=== PATIENT | male | born 1965 | race Caucasian/White ===

== ENCOUNTER 2017-11-12 08:57 | Emergency (ER) | payer OTHER ==
[~2017-11-12] VITALS: Ht 182.9 cm; Wt 163.3 kg
[2017-11-12] MEDS ORDERED: LOSA50TA36 (09:47)
[2017-11-12 09:54] LABS: BASOPHILS # (AUTO) 0.1 10^3/uL (0.0-0.1); BASOPHILS % (AUTO) 1 % (0-10); EOSINOPHILS # (AUTO) 0.2 10^3/uL (0.0-0.3); EOSINOPHILS % (AUTO) 2 % (0-10); HEMATOCRIT 43 % (40-54); HEMOGLOBIN 14.6 G/DL (13.3-17.7); LYMPHOCYTES # (AUTO) 2.2 X 10^3 (1.0-4.0); LYMPHOCYTES % (AUTO) 27 % (12-44); MEAN CORPUSCULAR HEMOGLOBIN 28 PG (25-34); MEAN CORPUSCULAR HGB CONC 34 G/DL (32-36); MEAN CORPUSCULAR VOLUME 83 FL (80-99); MEAN PLATELET VOLUME 10.8 FL (7.4-10.4); MONOCYTES # (AUTO) 0.6 X 10^3 (0.0-1.0); MONOCYTES % (AUTO) 8 % (0-12); NEUTROPHILS # (AUTO) 5.1 X 10^3 (1.8-7.8); NEUTROPHILS % (AUTO) 63 % (42-75); PLATELET COUNT 254 10^3/uL (130-400); RED BLOOD COUNT 5.22 10^6/uL (4.35-5.85); RED CELL DISTRIBUTION WIDTH 14.3 % (10.0-14.5); WHITE BLOOD COUNT 8.1 10^3/uL (4.3-11.0)
[2017-11-12] MEDS ORDERED: ONDANSETRON 4 MG/2 ML (SDV) Z0FRAN IVP ONE (10:00)
[2017-11-12] MEDS ORDERED: HYDROmorphone (DILAUDID) 2 MG/ML VIAL IVP ONE (10:00)
[2017-11-12] MEDS ORDERED: NS IV 1000 ML 1,000 ML IV SCH ×2 (10:00→11:15)
[2017-11-12 10:08] LABS: ALANINE AMINOTRANSFERASE 27 U/L (0-55); ALBUMIN 3.9 GM/DL (3.2-4.5); ALKALINE PHOSPHATASE 69 U/L (40-136); BILIRUBIN,TOTAL 0.7 MG/DL (0.1-1.0); BUN/CREATININE RATIO 13; CALCIUM 9.3 MG/DL (8.5-10.1); CARBON DIOXIDE 26 MMOL/L (21-32); CHLORIDE 107 MMOL/L (98-107); CREATININE SERUM 1.11 MG/DL (0.60-1.30); GFR ESTIMATED > 60; GLUCOSE 120 MG/DL (70-105); POTASSIUM 4.2 MMOL/L (3.6-5.0); SODIUM 142 MMOL/L (135-145); TOTAL PROTEIN 6.9 GM/DL (6.4-8.2)
--- NOTE | 2017-11-12 10:17 | ED GU-Male ---
General Chief Complaint: Abdominal/GI Problems Stated Complaint: POSS KIDNEY STONE Nursing Triage Note: ONSET OF L FLANK PAIN WITH RADIATION TO L GROIN Source: patient Exam Limitations: no limitations History of Present Illness Time seen by provider: 09:50 Initial Comments The patient is a 52-year-old white male who presents with a chief complaint of left sided flank pain with radiation towards the testicles. This began this morning. He has not noted any hematuria. He has a previous history of a kidney stone. Timing/Duration: this morning Severity/Quality: moderate Location: left flank Radiation: suprapubic, scrotal Activities at Onset: none Allergies and Home Medications Allergies Coded Allergies: levofloxacin (Verified Allergy, Unknown, 11/12/17) Home Medications Losartan Potassium 50 Mg Tablet, (Reported) Constitutional: see HPI Respiratory: no symptoms reported Gastrointestinal: no symptoms reported Genitourinary: flank pain (left-sided) Musculoskeletal: no symptoms reported Skin: no symptoms reported Past Thdwyht-Yjydgy-Olkgxn Hx Patient Social History Alcohol Use: Denies Use Recreational Drug Use: No Smoking Status: Never a Smoker Recent Foreign Travel: No Contact w/Someone Who Travel: No Recent Infectious Disease Expo: No Physical Exam Vital Signs Vital Sign - Last 12Hours 11/12/17 09:25 Temp 97.5 Pulse 58 Resp 18 B/P (MAP) 122/82 (95) Pulse Ox 95 Capillary Refill : Less Than 3 Seconds General Appearance: moderate distress HEENT: normal ENT inspection Neck: full range of motion Cardiovascular: normal peripheral pulses, regular rate, rhythm, no edema, no gallop, no JVD, no murmur Respiratory: chest non-tender, lungs clear, normal breath sounds, no respiratory distress, no accessory muscle use Back: CVA tenderness (L) Extremities: normal range of motion Progress/Results/Core Measures Suspected Sepsis Recent Fever Within 48 Hours: No Infection Criteria Present: None New/Unexplained Altered Menta: No Sepsis Screen: No Definite Risk Sepsis Diagnosis: SIRS Temperature:97.5 Pulse: 58 Respiratory Rate: 18 Laboratory Tests 11/12/17 09:40: White Blood Count 8.1 Blood Pressure 122 /82 Mean: 95 Laboratory Tests 11/12/17 09:40: Creatinine 1.11, Platelet Count 254, Total Bilirubin 0.7 Results/Orders Lab Results Laboratory Tests Test 11/12/17 09:40 Range/Units White Blood Count 8.1 4.3-11.0 10^3/uL Red Blood Count 5.22 4.35-5.85 10^6/uL Hemoglobin 14.6 13.3-17.7 G/DL Hematocrit 43 40-54 % Mean Corpuscular Volume 83 80-99 FL Mean Corpuscular Hemoglobin 28 25-34 PG Mean Corpuscular Hemoglobin Concent 34 32-36 G/DL Red Cell Distribution Width 14.3 10.0-14.5 % Platelet Count 254 130-400 10^3/uL Mean Platelet Volume 10.8 H 7.4-10.4 FL Neutrophils (%) (Auto) 63 42-75 % Lymphocytes (%) (Auto) 27 12-44 % Monocytes (%) (Auto) 8 0-12 % Eosinophils (%) (Auto) 2 0-10 % Basophils (%) (Auto) 1 0-10 % Neutrophils # (Auto) 5.1 1.8-7.8 X 10^3 Lymphocytes # (Auto) 2.2 1.0-4.0 X 10^3 Monocytes # (Auto) 0.6 0.0-1.0 X 10^3 Eosinophils # (Auto) 0.2 0.0-0.3 10^3/uL Basophils # (Auto) 0.1 0.0-0.1 10^3/uL Sodium Level 142 135-145 MMOL/L Potassium Level 4.2 3.6-5.0 MMOL/L Chloride Level 107 98-107 MMOL/L Carbon Dioxide Level 26 21-32 MMOL/L Anion Gap 9 5-14 MMOL/L Blood Urea Nitrogen 14 7-18 MG/DL Creatinine 1.11 0.60-1.30 MG/DL Estimat Glomerular Filtration Rate > 60 BUN/Creatinine Ratio 13 Glucose Level 120 H 70-105 MG/DL Calcium Level 9.3 8.5-10.1 MG/DL Total Bilirubin 0.7 0.1-1.0 MG/DL Aspartate Amino Transf (AST/SGOT) 24 5-34 U/L Alanine Aminotransferase (ALT/SGPT) 27 0-55 U/L Alkaline Phosphatase 69 40-136 U/L Total Protein 6.9 6.4-8.2 GM/DL Albumin 3.9 3.2-4.5 GM/DL My Orders Orders - ANITA WALTERS MD Cbc With Automated Diff (11/12/17 09:46) Comprehensive Metabolic Panel (11/12/17 09:46) Ua Culture If Indicated (11/12/17 09:46) Ns Iv 1000 Ml (Sodium Chloride 0.9%) (11/12/17 10:00) Hydromorphone Injection (Dilaudid Inject (11/12/17 10:00) Ondansetron Injection (Zofran Injectio (11/12/17 10:00) Ct Abd/Pelvis Wo(Kidney Stone) (11/12/17 10:09) Ns Iv 1000 Ml (Sodium Chloride 0.9%) (11/12/17 11:15) Ketorolac Injection (Toradol Injection) (11/12/17 11:15) Medications Given in ED Current Medications Medications Dose Ordered Sig/Josy Route Start Time Stop Time Status Last Admin Dose Admin Hydromorphone HCl 0.5 mg ONCE ONCE IVP 11/12/17 10:00 11/12/17 10:01 DC 11/12/17 09:58 0.5 MG Ketorolac Tromethamine 30 mg ONCE ONCE IVP 11/12/17 11:15 11/12/17 11:16 DC 11/12/17 11:16 30 MG Ondansetron HCl 8 mg ONCE ONCE IVP 11/12/17 10:00 11/12/17 10:01 DC 11/12/17 09:57 8 MG Vital Signs/I&O Vital Sign - Last 12Hours 11/12/17 09:25 Temp 97.5 Pulse 58 Resp 18 B/P (MAP) 122/82 (95) Pulse Ox 95 Capillary Refill : Less Than 3 Seconds Blood Pressure Mean: 95 Departure Impression Impression: Primary Impression: kidney stone Disposition: 01 HOME, SELF-CARE Condition: Stable/Unchanged Departure-Patient Inst. Decision time for Depature: 12:22 Referrals: NO,LOCAL PHYSICIAN (PCP) Primary Care Physician Patient Instructions: No Instuctions Given Add. Discharge Instructions: All discharge instructions reviewed with patient and/or family. Voiced understanding. Lots of fluids Walk about as much as possible Strain all urine Call office on Wednesday morning for appointment. [phone] Take medication for pain as necessary. If pain intolerable return to the emergency room for admission Scripts Hydrocodone/Acetaminophen (Hydrocodon-Acetaminophn 10-325) 1 Each Tablet 1 EACH PO EVERY 4 HOURS, #20 TAB Prov: ANITA WALTERS MD 11/12/17 ANITA WALTERS MD Nov 12, 2017 10:17
--- NOTE | 2017-11-12 10:44 | Diagnostic Imaging Report ---
PROCEDURE: CT urinary tract, rule out kidney stone. TECHNIQUE: Multiple contiguous axial images were obtained through the abdomen and pelvis without the use of intravenous contrast. INDICATION: Left-sided pain. COMPARISON: None. FINDINGS: There is mild bilateral basilar atelectasis. There is a small hiatal hernia. The liver and gallbladder appear unremarkable. The pancreas appears unremarkable. There is no biliary dilatation. The spleen and adrenal glands appear unremarkable. There is a 3 mm stone in the distal left ureter just proximal to the ureterovesical junction with mild left hydroureter and left caliectasis. No additional calcification seen. The right kidney and ureter appear unremarkable. The appendix appears normal. There is no focal inflammatory process demonstrated. There is no free air, free fluid or adenopathy. The abdominal aorta appears normal in caliber. There are degenerative changes in the lower lumbar spine. IMPRESSION: 1. There is a 3 mm stone in the distal left ureter just proximal to the ureterovesical junction with very minimal hydroureter and left caliectasis. 2. No additional significant abnormality is demonstrated. Dictated by: Dictated on workstation # [id number]
[2017-11-12] MEDS ORDERED: KETOROLAC 30 MG/ML VIAL IVP ONE (11:15)
[2017-11-12] MEDS ORDERED: HYDR-3820 PO (12:29)
[2017-11-12 12:40] LABS: BILIRUBIN,URINE NEGATIVE (NEGATIVE); CLARITY,URINE SLIGHTLY CLOUDY; COLOR,URINE YELLOW; GLUCOSE, URINE (UA) NEGATIVE (NEGATIVE); KETONES,URINE NEGATIVE (NEGATIVE); LEUKOCYTE ESTERASE ,URINE 1+ (NEGATIVE); NITRITE,URINE NEGATIVE (NEGATIVE); PH,URINE 6 (5-9); PROTEIN,URINE NEGATIVE (NEGATIVE); UROBILINOGEN,URINE NORMAL (NORMAL)
[2017-11-12] MEDS ORDERED: HYDROmorphone (DILAUDID) 2 MG/ML VIAL IVP PRN (12:45)
[2017-11-12 12:48] LABS: BACTERIA,URINE NEGATIVE /HPF; RBC,URINE RARE /HPF; SQUAMOUS EPITHELIAL CELL,UR RARE /HPF; WBC,URINE 0-2 /HPF
[2017-11-12 13:00] VITALS: BP 106/59
== END 2017-11-12 12:58 | disposition home or self-care (01) ==
LOC: ER 09:00
DX: N20.0 Calculus of kidney (principal)
CPT/HCPCS: 36415; 74176; 80053; 81000; 85025

== ENCOUNTER → 2019-06-16 | Outpatient (CLI) | payer BC ==
[~2019-06-16] MED LIST: HYDR-3820 PO; LOSA50TA63
--- NOTE | 2019-06-16 16:27 | Diagnostic Imaging Report ---
MRI RT LOWER EXT JOINT W/O TECHNIQUE: Multiplanar, multisequence MR imaging of the right knee was performed without contrast. COMPARISON: None available. INDICATION: Right knee pain from twisting injury 3 months ago FINDINGS: MENISCI Medial meniscus: Nondisplaced free edge radial tearing in the posterior horn of the medial meniscus. There is also a potential horizontal cleavage tear within the inferior surface of the medial meniscal body. The medial meniscal body is partially extruded into the medial gutter. Lateral meniscus: Normal. LIGAMENTS ACL: Intact. PCL: Intact. MCL: Intact. LCL: The lateral collateral ligamentous complex is intact. EXTENSOR MECHANISM The extensor mechanism is intact. CARTILAGE Medial compartment: Low-grade partial-thickness chondral wear within the weightbearing aspect of the medial compartment. Lateral compartment: The lateral compartment articular cartilage is preserved without high-grade chondromalacia. Patellofemoral compartment: Partial-thickness chondromalacia within the patella and femoral trochlea. BONE No fracture, stress fracture or osteonecrosis. SOFT TISSUE No knee effusion or Payton's cyst. IMPRESSION: 1. Nondisplaced free edge tear in the posterior horn of the medial meniscus. 2. 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 Dictated by: Dictated on workstation # [id number]
== END ==
LOC: RAD 14:40
PROVIDERS: ATTEND Nurse Practitioner
DX: S83.241A Other tear of medial meniscus, current injury, right knee, initial encounter (principal); S83.411A Sprain of medial collateral ligament of right knee, initial encounter; M22.41 Chondromalacia patellae, right knee; X50.1XXA Overexertion from prolonged static or awkward postures, initial encounter
CPT/HCPCS: 73721